=== PATIENT | male | born 1995 | race Caucasian/White ===

== ENCOUNTER 2019-03-15 11:22 | Inpatient (IN) | payer OTHER ==
[~2019-03-15] VITALS: Ht 167.6 cm; Wt 122.0 kg
[~2019-03-15 11:22] MED LIST: ACET325T33 PO; ALLO300T2 PO; CARAS PO; CYCL10TA7 PO; FAMO20TA18 PO; HYDR-3980 PO; HYDR-4011 PO; NALO4SPR NS; NAPR-688 PO; NYST1000 PO; SENN-120 PO; [UNRECOGNIZED DRUG - OTHER] SC
[2019-03-15] MEDS ORDERED: SOD CHLORIDE 0.9% 1,000 ML IV STA (12:00)
[2019-03-15] MEDS ORDERED: ACETAMINOPHEN 325 MG TAB PO PRN (13:00)
[2019-03-15] MEDS ORDERED: ONDANSETRON 4 MG INJ IV PRN (13:00)
[2019-03-15] MEDS: DOCUSATE SODIUM 100 MG CAP PO SCH (17:00)
[2019-03-15] MEDS ORDERED: ZOLPIDEM 5 MG TAB PO PRN (17:00)
[2019-03-15 20:17] VITALS: BMI 42.8
[2019-03-15 20:39] VITALS: BP 136/74; PULSE 97; RESP 20
[2019-03-16] MEDS: DEXTROSE 5%-0.45% NACL 1,000 ML IV SCH ×3 (01:31→21:47)
[2019-03-16 02:16] VITALS: BP 137/69; PULSE 92; RESP 17
[2019-03-16] MEDS: DOCUSATE SODIUM 100 MG CAP PO SCH ×2 (05:00→17:55)
[2019-03-16 07:51] VITALS: BP 128/78; PULSE 88; RESP 18
[2019-03-16] MEDS: ENOXAPARIN 40 MG/0.4 ML SYG SC SCH (08:12)
[2019-03-16] MEDS: FAMOTIDINE 20 MG TAB PO SCH (08:14)
[2019-03-16] MEDS: HYDROCODONE/APAP (5/325) TAB PO PRN (10:28)
[2019-03-16 14:14] VITALS: BP 134/73; PULSE 86; RESP 20
[2019-03-16] MEDS: ALLOPURINOL 300 MG TAB PO SCH (14:36)
[2019-03-16 20:00] VITALS: BP 122/80; PULSE 96; RESP 18
[2019-03-17] VITALS (13 sets, daily range): BP systolic 92–140; BP diastolic 55–92; PULSE 66–104; RESP 18–48
[2019-03-17] MEDS: DOCUSATE SODIUM 100 MG CAP PO SCH ×2 (05:00→21:17)
[2019-03-17] MEDS: DEXTROSE 5%-0.45% NACL 1,000 ML IV SCH ×2 (08:02→21:41)
[2019-03-17] MEDS: ENOXAPARIN 40 MG/0.4 ML SYG SC SCH (09:00)
[2019-03-17] MEDS: ALLOPURINOL 300 MG TAB PO SCH (09:16)
[2019-03-17] MEDS: FAMOTIDINE 20 MG TAB PO SCH (09:16)
[2019-03-17] MEDS ORDERED: FENTAnyl 50 MCG/ML VIAL ONE ×3 (15:05→17:26)
[2019-03-17] MEDS ORDERED: MIDAZOLAM 1 MG/ML 2 ML INJ ONE ×3 (15:06→17:26)
[2019-03-17] MEDS ORDERED: POLYMYXIN/BACITRACIN 1L IRRIG IRR ONE (15:30)
[2019-03-17] MEDS ORDERED: CEFAZOLIN 1 GM/50 ML (PMX) 50 ML IVPB SCH (15:30)
[2019-03-17] MEDS ORDERED: LIDOCAINE 1% (MDV) 20 ML INJ ONE (15:31)
[2019-03-17] MEDS ORDERED: LIDOCAINE 1%/EPI 30 ML INJ ONE (16:25)
[2019-03-17] MEDS: morphine 2 MG INJ IV PRN (21:16)
[2019-03-17] MEDS: HYDROCODONE/APAP (5/325) TAB PO PRN (23:06)
[2019-03-18 00:08] VITALS: BP 132/66; PULSE 88; RESP 17
[2019-03-18] MEDS: morphine 2 MG INJ IV PRN (01:45)
[2019-03-18] MEDS: HYDROCODONE/APAP (5/325) TAB PO PRN ×2 (06:11→13:51)
[2019-03-18] MEDS: DOCUSATE SODIUM 100 MG CAP PO SCH ×2 (06:11→16:51)
[2019-03-18 07:14] VITALS: BP 129/76; PULSE 83; RESP 18
[2019-03-18] MEDS: DEXTROSE 5%-0.45% NACL 1,000 ML IV SCH ×3 (08:16→16:51)
[2019-03-18] MEDS: ALLOPURINOL 300 MG TAB PO SCH (08:59)
[2019-03-18] MEDS: FAMOTIDINE 20 MG TAB PO SCH (08:59)
[2019-03-18] MEDS: ENOXAPARIN 40 MG/0.4 ML SYG SC SCH (09:25)
[2019-03-18] MEDS ORDERED: HYDROmorphONE 1 MG/ML SYG IV ONE (12:00)
[2019-03-18 13:06] VITALS: Ht 167.6 cm; Wt 122.0 kg
[2019-03-18 13:52] VITALS: BP 134/88; PULSE 96; RESP 18
[2019-03-18] MEDS: HYDROmorphONE 1 MG/ML SYG IV PRN ×2 (16:42→22:16)
[2019-03-18 20:10] VITALS: BP 133/78; PULSE 92; RESP 20
[2019-03-19] VITALS (10 sets, daily range): BP systolic 130–142; BP diastolic 67–86; PULSE 88–104; RESP 15–18
[2019-03-19] MEDS: HYDROCODONE/APAP (5/325) TAB PO PRN (00:56)
[2019-03-19] MEDS: DOCUSATE SODIUM 100 MG CAP PO SCH ×2 (05:00→16:58)
[2019-03-19] MEDS: ALLOPURINOL 300 MG TAB PO SCH (09:25)
[2019-03-19] MEDS: FAMOTIDINE 20 MG TAB PO SCH (09:25)
[2019-03-19] MEDS: SOD CHLORIDE 0.45% 1,000 ML IV SCH (09:25)
[2019-03-19] MEDS: ENOXAPARIN 40 MG/0.4 ML SYG SC SCH (09:32)
[2019-03-19] MEDS: HYDROmorphONE 1 MG/ML SYG IV PRN ×2 (09:40→09:41)
[2019-03-19] MEDS ORDERED: DIPHENHYDRAMINE 50 MG INJ IV SCH (11:00)
[2019-03-19] MEDS ORDERED: DEXAMETHASONE 4 MG/ML 20 MG, ONDANSETRON INJ 16 MG in SOD CHLORIDE 0.9% 50 ML IVPB SCH (11:00)
[2019-03-19] MEDS ORDERED: METHYLPREDNISOLONE 125 MG INJ IV PRN (11:00)
[2019-03-19] MEDS: ACETAMINOPHEN 325 MG TAB PO PRN (11:53)
[2019-03-19] MEDS ORDERED: SOD CHLORIDE 0.9% IV SCH (12:00)
[2019-03-19] MEDS ORDERED: RITUXIMAB IV SCH (12:00)
[2019-03-19] MEDS ORDERED: ONDANSETRON INJ 8 MG in DEXTROSE 5% 50 ML IV PRN (22:00)
[2019-03-19] MEDS ORDERED: ONDANSETRON INJ 16 MG, DEXAMETHASONE 4 MG/ML 20 MG in DEXTROSE 5% 50 ML IV ONE (22:00)
[2019-03-19] MEDS ORDERED: DIPHENHYDRAMINE 50 MG INJ IV ONE (22:00)
[2019-03-20] VITALS (12 sets, daily range): BP systolic 130–141; BP diastolic 64–87; PULSE 87–102; RESP 15–20
[2019-03-20] MEDS: SOD CHLORIDE 0.45% 1,000 ML IV SCH ×3 (00:30→23:31)
[2019-03-20] MEDS: DOXORUBICIN IV SCH (01:02)
[2019-03-20] MEDS: ETOPOSIDE IV SCH (01:02)
[2019-03-20] MEDS: SOD CHLORIDE 0.9% IV SCH (01:02)
[2019-03-20] MEDS: VINCRISTINE IV SCH (01:02)
[2019-03-20] MEDS: ONDANSETRON 4 MG INJ IV PRN (03:16)
[2019-03-20] MEDS: HYDROmorphONE 1 MG/ML SYG IV PRN ×3 (03:47→20:47)
[2019-03-20] MEDS: DOCUSATE SODIUM 100 MG CAP PO SCH ×2 (05:22→17:00)
[2019-03-20] MEDS: FAMOTIDINE 20 MG TAB PO SCH (08:54)
[2019-03-20] MEDS: predniSONE 20 MG TAB PO SCH (08:55)
[2019-03-20] MEDS: ALLOPURINOL 300 MG TAB PO SCH (08:55)
[2019-03-20] MEDS ORDERED: predniSONE 20 MG TAB PO SCH (09:00)
[2019-03-20] MEDS: ENOXAPARIN 40 MG/0.4 ML SYG SC SCH (09:01)
[2019-03-20] MEDS: ONDANSETRON INJ 16 MG in SOD CHLORIDE 0.9% 50 ML IVPB SCH (23:30)
[2019-03-21] MEDS: DIPHENHYDRAMINE 50 MG INJ IV PRN (00:07)
[2019-03-21 00:25] VITALS: BP 133/71; PULSE 91; RESP 14
[2019-03-21] MEDS: SOD CHLORIDE 0.9% IV SCH (00:27)
[2019-03-21] MEDS: DOXORUBICIN IV SCH (00:27)
[2019-03-21] MEDS: ETOPOSIDE IV SCH (00:27)
[2019-03-21] MEDS: VINCRISTINE IV SCH (00:27)
[2019-03-21 00:53] VITALS: BP 132/62; PULSE 91; RESP 18
[2019-03-21 03:58] VITALS: BP 116/59; PULSE 86; RESP 20
[2019-03-21] MEDS: DOCUSATE SODIUM 100 MG CAP PO SCH ×2 (05:00→17:21)
[2019-03-21 07:06] VITALS: BP 123/68; PULSE 77; RESP 16
[2019-03-21] MEDS: ALLOPURINOL 300 MG TAB PO SCH (08:53)
[2019-03-21] MEDS: FAMOTIDINE 20 MG TAB PO SCH (08:53)
[2019-03-21] MEDS: ENOXAPARIN 40 MG/0.4 ML SYG SC SCH (08:57)
[2019-03-21] MEDS: predniSONE 20 MG TAB PO SCH (10:08)
[2019-03-21] MEDS: HYDROCODONE/APAP (5/325) TAB PO PRN (10:08)
[2019-03-21 14:50] VITALS: BP 129/66; PULSE 88; RESP 14
[2019-03-21] MEDS ORDERED: MAGNESIUM HYDROXIDE 30ML CUP PO ONE (15:00)
[2019-03-21] MEDS: SOD CHLORIDE 0.45% 1,000 ML IV SCH (15:28)
[2019-03-21] MEDS: HYDROmorphONE 1 MG/ML SYG IV PRN (16:17)
[2019-03-21 19:54] VITALS: BP 125/78; PULSE 96; RESP 18
[2019-03-21] MEDS: ACETAMINOPHEN 325 MG TAB PO PRN (20:39)
[2019-03-22 00:37] VITALS: BP 124/74; PULSE 86; RESP 18
[2019-03-22] MEDS: ONDANSETRON INJ 16 MG in SOD CHLORIDE 0.9% 50 ML IVPB SCH (01:02)
[2019-03-22 01:45] VITALS: BP 135/68; PULSE 85; RESP 15
[2019-03-22] MEDS: DIPHENHYDRAMINE 50 MG INJ IV PRN (01:50)
[2019-03-22] MEDS: DOXORUBICIN IV SCH (02:01)
[2019-03-22] MEDS: ETOPOSIDE IV SCH (02:01)
[2019-03-22] MEDS: VINCRISTINE IV SCH (02:01)
[2019-03-22] MEDS: SOD CHLORIDE 0.9% IV SCH (02:01)
[2019-03-22] MEDS: SOD CHLORIDE 0.45% 1,000 ML IV SCH (03:59)
[2019-03-22 08:06] VITALS: BP 125/77; PULSE 84; RESP 16
[2019-03-22] MEDS: ALLOPURINOL 300 MG TAB PO SCH (09:21)
[2019-03-22] MEDS: DOCUSATE SODIUM 100 MG CAP PO SCH ×2 (09:21→21:06)
[2019-03-22] MEDS: FAMOTIDINE 20 MG TAB PO SCH (09:22)
[2019-03-22] MEDS: ENOXAPARIN 40 MG/0.4 ML SYG SC SCH (09:32)
[2019-03-22] MEDS: predniSONE 20 MG TAB PO SCH (09:54)
[2019-03-22] MEDS: HYDROmorphONE 1 MG/ML SYG IV PRN ×2 (12:17→18:22)
[2019-03-22 14:53] VITALS: BP 131/70; PULSE 93; RESP 16
[2019-03-22] MEDS: HYDROCODONE/APAP (5/325) TAB PO PRN (15:03)
[2019-03-22] MEDS: FAMOTIDINE 20 MG INJ IV PRN (15:42)
[2019-03-22 20:35] VITALS: BP 128/67; PULSE 80; RESP 18
[2019-03-22 22:20] VITALS: BP 123/76; PULSE 75; RESP 16
[2019-03-23] MEDS: HYDROCODONE/APAP (5/325) TAB PO PRN (00:22)
[2019-03-23] MEDS: ETOPOSIDE IV SCH ×2 (01:00→05:23)
[2019-03-23] MEDS: SOD CHLORIDE 0.9% IV SCH ×2 (01:00→05:23)
[2019-03-23] MEDS: VINCRISTINE IV SCH ×2 (01:00→05:23)
[2019-03-23] MEDS: DOXORUBICIN IV SCH ×2 (01:00→05:23)
[2019-03-23] MEDS: DIPHENHYDRAMINE 50 MG INJ IV PRN (02:30)
[2019-03-23] MEDS: ONDANSETRON INJ 16 MG in SOD CHLORIDE 0.9% 50 ML IVPB SCH (04:25)
[2019-03-23 04:28] VITALS: BP 119/63; PULSE 69; RESP 16
[2019-03-23 07:51] VITALS: BP 115/63; PULSE 66; RESP 16
[2019-03-23] MEDS: DOCUSATE SODIUM 100 MG CAP PO SCH ×2 (09:08→21:17)
[2019-03-23] MEDS: ALLOPURINOL 300 MG TAB PO SCH (09:08)
[2019-03-23] MEDS: FAMOTIDINE 20 MG TAB PO SCH (09:09)
[2019-03-23] MEDS: ENOXAPARIN 40 MG/0.4 ML SYG SC SCH (09:14)
[2019-03-23] MEDS: ACETAMINOPHEN 325 MG TAB PO PRN ×2 (09:29→21:23)
[2019-03-23 09:30] VITALS: BP 129/81; PULSE 75; RESP 17
[2019-03-23] MEDS: predniSONE 20 MG TAB PO SCH (10:14)
[2019-03-23 14:42] VITALS: BP 135/89; PULSE 102; RESP 18
[2019-03-23] MEDS: HYDROmorphONE 1 MG/ML SYG IV PRN ×2 (15:32→23:07)
[2019-03-23] MEDS: FAMOTIDINE 20 MG INJ IV PRN (18:47)
[2019-03-23 20:28] VITALS: BP 136/61; PULSE 103; RESP 18
[2019-03-24] VITALS (16 sets, daily range): BP systolic 114–134; BP diastolic 56–77; PULSE 77–99; RESP 16–22
[2019-03-24] MEDS: DIPHENHYDRAMINE 50 MG INJ IV PRN (00:42)
[2019-03-24] MEDS: ONDANSETRON 4 MG INJ IV PRN (09:21)
[2019-03-24] MEDS: DOCUSATE SODIUM 100 MG CAP PO SCH ×2 (09:22→20:00)
[2019-03-24] MEDS: ALLOPURINOL 300 MG TAB PO SCH (09:22)
[2019-03-24] MEDS: HYDROmorphONE 1 MG/ML SYG IV PRN ×3 (09:22→23:25)
[2019-03-24] MEDS: FAMOTIDINE 20 MG TAB PO SCH (09:23)
[2019-03-24] MEDS: ENOXAPARIN 40 MG/0.4 ML SYG SC SCH (09:24)
[2019-03-24] MEDS ORDERED: ONDANSETRON INJ 16 MG in SOD CHLORIDE 0.9% 50 ML IVPB SCH (15:00)
[2019-03-24] MEDS ORDERED: CYCLOPHOSPHAMIDE IV SCH (16:00)
[2019-03-24] MEDS ORDERED: SOD CHLORIDE 0.9% IV SCH (16:00)
[2019-03-24] MEDS: ACETAMINOPHEN 325 MG TAB PO PRN (16:44)
[2019-03-24] MEDS: SOD CHLORIDE 0.45% 1,000 ML IV SCH (18:17)
[2019-03-24] MEDS: HYDROCODONE/APAP (5/325) TAB PO PRN (20:36)
[2019-03-25] MEDS: DIPHENHYDRAMINE 50 MG INJ IV PRN (00:13)
[2019-03-25 02:39] VITALS: BP 109/58; PULSE 76; RESP 20
[2019-03-25] MEDS: SOD CHLORIDE 0.45% 1,000 ML IV SCH ×2 (06:46→22:08)
[2019-03-25 07:55] VITALS: BP 125/71; PULSE 79; RESP 18
[2019-03-25] MEDS: DOCUSATE SODIUM 100 MG CAP PO SCH ×2 (09:15→20:09)
[2019-03-25] MEDS: FAMOTIDINE 20 MG TAB PO SCH (09:16)
[2019-03-25] MEDS: ALLOPURINOL 300 MG TAB PO SCH (09:16)
[2019-03-25] MEDS: ENOXAPARIN 40 MG/0.4 ML SYG SC SCH (09:29)
[2019-03-25] MEDS: HYDROmorphONE 1 MG/ML SYG IV PRN ×3 (10:09→21:17)
[2019-03-25 14:27] VITALS: BP 114/56; PULSE 99; RESP 18
[2019-03-25] MEDS: FILGRASTIM-AAFI 480 MCG/0.8 ML SYRINGE SC SCH (16:35)
[2019-03-25 19:45] VITALS: BP 128/60; PULSE 115; RESP 20
[2019-03-25] MEDS: HYDROCODONE/APAP (5/325) TAB PO PRN (20:10)
[2019-03-25 22:30] VITALS: BP 140/64; PULSE 98; RESP 18
[2019-03-26] MEDS: DIPHENHYDRAMINE 50 MG INJ IV PRN (00:57)
[2019-03-26] MEDS: HYDROmorphONE 1 MG/ML SYG IV PRN ×4 (01:19→20:48)
[2019-03-26 01:57] VITALS: BP 125/75; PULSE 118; RESP 20
[2019-03-26] MEDS ORDERED: POLYETHYLENE GLYCOL 17 GM PACKET PO PRN (04:00)
[2019-03-26 07:29] VITALS: BP 129/64; PULSE 98; RESP 20
[2019-03-26] MEDS ORDERED: KETOROLAC 15 MG INJ IV STA (08:58)
[2019-03-26] MEDS ORDERED: ACETAMINOPHEN 500 MG TAB PO STA (09:02)
[2019-03-26] MEDS: FAMOTIDINE 20 MG TAB PO SCH ×2 (09:06→20:48)
[2019-03-26] MEDS: ALLOPURINOL 300 MG TAB PO SCH (09:06)
[2019-03-26] MEDS: DOCUSATE SODIUM 100 MG CAP PO SCH ×2 (09:06→20:48)
[2019-03-26] MEDS: ENOXAPARIN 40 MG/0.4 ML SYG SC SCH (09:08)
[2019-03-26] MEDS: SOD CHLORIDE 0.45% 1,000 ML IV SCH ×2 (10:30→13:11)
[2019-03-26] MEDS ORDERED: METOCLOPRAMIDE 10 MG INJ IV ONE (11:30)
[2019-03-26] MEDS ORDERED: PANTOPRAZOLE (EC) 40 MG TAB PO ONE (12:30)
[2019-03-26] MEDS: DIPHENHYD/MYLANTA/LIDO (PO SYG) PO SCH ×2 (13:11→18:14)
[2019-03-26 14:27] VITALS: BP 124/75; PULSE 96; RESP 18
[2019-03-26] MEDS: FILGRASTIM-AAFI 480 MCG/0.8 ML SYRINGE SC SCH (17:43)
[2019-03-26 19:44] VITALS: BP 127/69; PULSE 100; RESP 18
[2019-03-26] MEDS: HYDROCODONE/APAP (5/325) TAB PO PRN (23:26)
[2019-03-27] MEDS: DIPHENHYDRAMINE 50 MG INJ IV PRN (00:56)
[2019-03-27] MEDS: DIPHENHYD/MYLANTA/LIDO (PO SYG) PO SCH ×3 (00:57→11:45)
[2019-03-27] MEDS: HYDROmorphONE 1 MG/ML SYG IV PRN ×2 (00:57→10:36)
[2019-03-27] MEDS: SOD CHLORIDE 0.45% 1,000 ML IV SCH (02:12)
[2019-03-27 02:29] VITALS: BP 126/60; PULSE 94; RESP 18
[2019-03-27 07:16] VITALS: BP 117/59; PULSE 95; RESP 18
[2019-03-27] MEDS: ALLOPURINOL 300 MG TAB PO SCH (08:27)
[2019-03-27] MEDS: DOCUSATE SODIUM 100 MG CAP PO SCH (08:28)
[2019-03-27] MEDS: FAMOTIDINE 20 MG TAB PO SCH (08:28)
[2019-03-27] MEDS: HYDROCODONE/APAP (5/325) TAB PO PRN ×2 (08:32→15:03)
[2019-03-27] MEDS: ENOXAPARIN 40 MG/0.4 ML SYG SC SCH (08:32)
[2019-03-27] MEDS ORDERED: HEPARIN (100 UNITS/ML) 5 ML SYG CATHETER ONE (09:30)
[2019-03-27 15:00] VITALS: BP 122/56; PULSE 95; RESP 18
[2019-03-27] MEDS: FILGRASTIM-AAFI 480 MCG/0.8 ML SYRINGE SC SCH (15:55)
== END 2019-03-27 16:47 | disposition home or self-care (01) | DRG 847 ==
LOC: E/R 11:22 → MS1 12:52 → SUATTDRO 13:57
PROVIDERS: ADMIT Family Medicine; ATTEND Family Medicine
PROC: 07DR3ZX Extraction of Iliac Bone Marrow, Percutaneous Approach, Diagnostic (ICD-10-PCS; principal; 2019-03-17)
PROC: 0JH63WZ Insertion of Totally Implantable Vascular Access Device into Chest Subcutaneous Tissue and Fascia, Percutaneous Approach (ICD-10-PCS; 2019-03-17)
PROC: 02HV33Z Insertion of Infusion Device into Superior Vena Cava, Percutaneous Approach (ICD-10-PCS; 2019-03-17)
PROC: B548ZZA Ultrasonography of Superior Vena Cava, Guidance (ICD-10-PCS; 2019-03-17)
PROC: B518YZA Fluoroscopy of Superior Vena Cava using Other Contrast, Guidance (ICD-10-PCS; 2019-03-17)
PROC: 3E04305 Introduction of Other Antineoplastic into Central Vein, Percutaneous Approach (ICD-10-PCS; 2019-03-19)
DX: Z51.11 Encounter for antineoplastic chemotherapy (principal); C83.31 Diffuse large B-cell lymphoma, lymph nodes of head, face, and neck; Z68.41 Body mass index [BMI] 40.0-44.9, adult; C83.39 Diffuse large B-cell lymphoma, extranodal and solid organ sites; C83.38 Diffuse large B-cell lymphoma, lymph nodes of multiple sites; E66.01 Morbid (severe) obesity due to excess calories; M54.6 Pain in thoracic spine; K12.32 Oral mucositis (ulcerative) due to other drugs; Z71.3 Dietary counseling and surveillance; R11.0 Nausea
CPT/HCPCS: 36415; 36561; 76942; 77012; 80048; 80053; 81003; 82962; 83615; 83690; 83735; 84100; 84560; 85025; 85610; 85730; 86703; 86803; 87340; 88305; 88313; 88341; 88342; 93306; 97110; 97116; 97161; 97530; J9181; C1788; J0690; J1100; J1170; J1200; J1642; J1650; J1885; J2250; J2270; J2405; J2765; J2930; J3010; J7030; J7040; J7042; J7050; J7512; J9000; J9070; J9310; J9370; Q5110

== ENCOUNTER 2019-03-30 20:10 | Emergency (ER) | payer OTHER ==
[~2019-03-30] VITALS: Ht 170.2 cm; Wt 125.6 kg
[2019-03-30 20:28] VITALS: Ht 170.2 cm; Wt 125.6 kg
[2019-03-30] MEDS ORDERED: ONDANSETRON 4 MG INJ IV STA (20:45)
[2019-03-30] MEDS ORDERED: HYDROmorphONE 1 MG/ML SYG IV STA (20:45)
[2019-03-30] MEDS ORDERED: SOD CHLORIDE 0.9% 1,000 ML IV STA (20:45)
[2019-03-30] MEDS ORDERED: LIDOCAINE/MYLANTA 40 ML BTL PO ONE (21:00)
[2019-03-30] MEDS ORDERED: HYDROmorphONE 2 MG/ML SYG IV STA (22:13)
[2019-03-30 22:49] VITALS: BP 121/76; PULSE 113; RESP 20
== END 2019-03-30 22:50 | disposition home or self-care (01) ==
LOC: E/R 20:10
DX: R51 Headache (principal); C85.90 Non-Hodgkin lymphoma, unspecified, unspecified site
CPT/HCPCS: 36415; 70450; 80053; 83690; 85025; 96374; 96375; J1170; J2405; J7030; Z7502; Z7610

== ENCOUNTER 2019-04-30 12:15 | Emergency (ER) | payer OTHER ==
[~2019-04-30] VITALS: Ht 170.2 cm; Wt 126.8 kg
[~2019-04-30 12:15] MED LIST changes: +ACET500C5 PO; +DOCU-144 PO; -HYDR-3980 PO; +METO5TAB2 PO; -NALO4SPR NS; -NAPR-688 PO; +OXYC-481 PO; +POLY10DR19 LEFT EYE; +PROM25TA14 PO; +SALI44.3 MUCOUSMEM; +SODI104S2 NASAL; -[UNRECOGNIZED DRUG - OTHER] SC
[2019-04-30 12:19] VITALS: Ht 170.2 cm; Wt 126.8 kg
[2019-04-30] MEDS ORDERED: SODIUM CHLORIDE 0.9% 1L IRRIG IRR STA (14:05)
[2019-04-30] MEDS ORDERED: TETRACAINE 0.5% 4 ML OPH LEFT EYE ONE (14:30)
[2019-04-30 15:50] VITALS: BP 137/89; PULSE 90; RESP 16
== END 2019-04-30 16:02 | disposition home or self-care (01) ==
LOC: E/R 12:15
DX: C85.18 Unspecified B-cell lymphoma, lymph nodes of multiple sites (principal); H10.32 Unspecified acute conjunctivitis, left eye; R40.2142 Coma scale, eyes open, spontaneous, at arrival to emergency department; R40.2252 Coma scale, best verbal response, oriented, at arrival to emergency department; R40.2362 Coma scale, best motor response, obeys commands, at arrival to emergency department
CPT/HCPCS: 80048; 85025; A4217; Z7610; 99283